=== PATIENT | female | born 1965 | race Caucasian/White ===

== ENCOUNTER 2019-02-14 13:57 | Inpatient (IN) ==
[2019-02-14 14:21] LABS: BASO# 0.03 X1000 (0.0-0.2); BASO% 0.3 % (0.0-0.8); EOS# 0.02 X1000 (0.0-0.7); EOS% 0.2 % (0.0-10.0); HEMATOCRIT 38.7 % (37.0-47.0); IMM GRAN# 0.02 X1000 (0.0-0.04); IMM GRAN% 0.2 % (0.0-0.5); LYMPH# 2.55 X1000 (1.2-3.4); LYMPH% 25.9 % (20.5-51.1); MCH 27.5 PG (27-31); MCV 88.8 FL (81-99); MONO# 0.66 X1000 (0.11-0.59); MONO% 6.7 % (1.7-9.3); MPV 11.6 FL (7.4-10.4); NEUT# 6.55 X1000 (1.4-6.5); NEUT% 66.7 % (42.2-75.2); PLT 313 X1000 (130-400); RBC 4.36 XMIL (4.2-5.4); RDW 13.8 % (11.5-14.5); WBC 9.83 X1000 (4.8-10.8)
[2019-02-14 14:40] LABS: ALB/GLOB RATIO 1.5; CALCIUM 9.1 mg/dL (8.8-10.2); POTASSIUM 3.8 mmol/L (3.5-5.1); TOTAL BILIRUBIN 0.32 mg/dL (0.20-1.00); TOTAL PROTEIN 6.7 g/dL (6.3-8.3)
--- NOTE | 2019-02-14 14:47 | EKG Report ---
Test Performed on : 02/14/2019 2:12:31 PM Test Reason : sob Blood Pressure : / mmHG Vent. Rate : 106 BPM Atrial Rate : 106 BPM P-R Int : 134 ms QRS Dur : 102 ms QT Int : 366 ms P-R-T Axes : 046 -36 007 degrees QTc Int : 486 ms Sinus tachycardia. Left axis deviation Voltage criteria for left ventricular hypertrophy Nonspecific T wave abnormality Abnormal ECG When compared with ECG of 09-JAN-2017 09:42, Vent. rate has increased BY 38 BPM Unconfirmed Result
--- NOTE | 2019-02-14 14:51 | PROVIDER DOCUMENTATION ---
HPI-General Adult - General Chief Complaint: Shortness of Breath Stated Complaint: HEART ISSUE-[facility]ARE [facility] REF Time Seen by Provider: 02/14/19 14:37 Source: patient Allergies/Adverse Reactions: Patient Allergies Allergy/AdvReac Type Severity Reaction Status Date / Time No Known Allergies Allergy Verified 02/14/19 14:03 Home Medications: Home Medication List Medication Instructions Recorded Confirmed Last Taken Type Atorvastatin Calcium [Lipitor] 20 mg PO QHS 12/05/16 02/14/19 02/13/19 History Levothyroxine [Synthroid] 75 microgm PO DAILY 12/05/16 02/14/19 02/14/19 History Gabapentin 1 tab PO TID 02/14/19 02/14/19 02/14/19 History Hydrocodone/APAP 10 mg/325 mg 1 tab PO DAILY 02/14/19 02/14/19 02/14/19 History [[place]-10] - History of Present Illness -Gen Adult Nature of Presenting Problems: 53yo female presents with CC of shortness of breath and cough. The patient reports that she went to urgent care for her symptoms and an echo was done showing enlarged heart and she was told to come to the ED. The patient denies hx of heart disease. The patient denies chest pain. The patient denies drug use. The patient denies any new swelling. The patient does report some decreased exercise tolerance. Location of Pain/Injury: reports: none Pain Radiation: reports: no radiation Quality of Pain: reports: none Severity: reports: mild Onset/Duration: reports: last week (1.5wks) Timing: reports: still present Context/Activities at Onset: reports: other (recent bronchitis) Modifying Factors: improves with: nothing Associated Symptoms: reports: cough, shortness of breath, other (decreased exercise tolerance, no increased swelling). denies: chest pain, fever/chills Review of Systems - Adult - REVIEW OF SYSTEMS - ADULT Constitutional: reports: no symptoms reported. denies: fever Eyes: reports: no symptoms reported. denies: eye pain Ears, Nose, Mouth & Throat: reports: no symptoms reported. denies: throat pain Cardiovascular: reports: no symptoms reported, other (decrease exercise tolerance). denies: chest pain Respiratory: reports: cough, shortness of breath. denies: hemoptysis Gastrointestinal: reports: no symptoms reported. denies: abdominal pain Genitourinary: reports: no symptoms reported. denies: flank pain Integumentary: reports: no symptoms reported Neurological: reports: no symptoms reported. denies: headache/migraines Psychiatric: reports: no symptoms reported. denies: alcohol/drug dependence Endocrine: reports: no symptoms reported Hematologic/Lymphatic: reports: no symptoms reported, other (no bleeding) Allergic/Immunologic: reports: no symptoms reported Past History - Adult - PAST MEDICAL HISTORY-ADULT Review of Records: reports: Old Records Reviewed Major Childhood Illnesses: reports: denies history Cardiovascular: reports: hyperlipidemia Respiratory: reports: denies history Gastrointestinal: reports: denies history Obstetrical/Gynecological: reports: denies history Genitourinary: reports: denies history Musculoskeletal: reports: chronic pain Neurological: reports: denies history Psychiatric: reports: anxiety, psychiatric problems Endocrine/Immune: reports: thyroid disorder Other Conditions: reports: denies history - PRIOR SURGERIES/PROCEDURES Surgical/Procedure History: reports: hysterectomy, - IMMUNIZATION STATUS Childhood Immunizations: See Nurse Assessment Flu Vaccine: See Nurse Assessment - FAMILY HISTORY Family History: reviewed, not pertinent - SOCIAL HISTORY Smoking: denies Substance Use: none/never Alcohol Use Frequency: never Physical Exam-General - PHYSICAL EXAM-ADULT Initial Vital Signs Reviewed: Yes - CONSTITUTIONAL General Appearance: appears well, alert, no apparent distress - EYES Eyes: negative: conjuctival exudate, photophobia, scleral icterus - HEAD, EARS, NOSE, MOUTH & THROAT HENMT: normocephalic/atraumatic, moist mucous membranes, pharynx normal. negative: angioedema, hearing deficit, pharyngeal erythema - NECK Neck: supple, normal inspection, other (no mass) - RESPIRATORY Respiratory: lungs clear, normal breath sounds, no respiratory distress. negative: crackles, rales, stridor, wheezing - CARDIOVASCULAR Cardiovascular: regular rate, rhythm. negative: no edema (trace LE edema bilaterally) - GASTROINTESTINAL (ABDOMEN) Abdominal Exam: non tender, soft. negative: guarding - MUSCULOSKELETAL Extremity: non-tender - SKIN Integumentary: normal color, warm/dry - NEUROLOGIC Neurologic: grossly normal - PSYCHIATRIC Psych/Mental Status: normal mood/affect, normal thought content, normal thought process Progress - PLAN OF CARE/RESULTS Progress/Plan/Lab Results: Vital Signs - 8 hr 02/14/19 13:59 Temperature 97.5 F L Pulse Rate 109 H Respiratory Rate 20 Blood Pressure 121/79 O2 Sat by Pulse Oximetry 96 Laboratory Results - last 24 hr 02/14/19 02/14/19 02/14/19 14:07 14:07 14:07 WBC 9.83 RBC 4.36 Hgb 12.0 Hct 38.7 MCV 88.8 MCH 27.5 MCHC 31.0 L RDW Std Deviation 13.8 Plt Count 313 MPV 11.6 H Immature Gran % (Auto) 0.2 Neut % (Auto) 66.7 Lymph % (Auto) 25.9 [place] % (Auto) 6.7 Eos % (Auto) 0.2 Baso % (Auto) 0.3 Immature Gran # (Auto) 0.02 Neut # (Auto) 6.55 H Lymph # (Auto) 2.55 [place] # (Auto) 0.66 H Eos # (Auto) 0.02 Baso # (Auto) 0.03 Sodium 143 Potassium 3.8 Chloride 105 Carbon Dioxide 22 L Anion Gap 16 BUN 12 Creatinine 1.0 H Estimated GFR/1.73 m2 58 BUN/Creatinine Ratio 12 Glucose 126 H Calculated Osmolality 286 Calcium 9.1 Total Bilirubin 0.32 AST 34 H ALT 54 H Alkaline Phosphatase 124 H Creatine Kinase 68 Troponin T High Sens 18 Total Protein 6.7 Albumin 4.0 Globulin 2.7 Albumin/Globulin Ratio 1.5 Orders Category Date Time Status Cardiac Monitoring DIRECTED Care 02/14/19 14:04 Active Oxygen Therapy- ED Nursing DIRECTED Care 02/14/19 14:04 Active Saline Loc NOW Care 02/14/19 14:04 Active CHEST-2 VIEWS [RAD] Stat Exams 02/14/19 14:04 Taken CBC WITH ELECTRONIC DIFF [HEME] Stat Lab 02/14/19 14:07 Completed CK PROFILE [SP CHEM] Stat Lab 02/14/19 14:07 Completed COMPREHENSIVE METABOLIC PANEL [CHEM] Stat Lab 02/14/19 14:07 Completed PRO B-NATRIURETIC PEPTIDE Stat Lab 02/14/19 14:07 Received PROTIME WITH INR [COAG] Stat Lab 02/14/19 14:07 Received PTT [COAG] Stat Lab 02/14/19 14:07 Received TROPONIN T HIGH SENSITIVITY Stat Lab 02/14/19 14:07 Completed CP/SOB/Palp >45 yrs of Age Stat Oth 02/14/19 14:04 Ordered EKG [EKG] Stat Ther 02/14/19 14:04 Ordered Result Diagrams: 02/14/19 14:07 02/14/19 14:07 - REASSESSMENT Reassessment #1 Status: other (Given elevated BNP to 4000 as well as new EF on urgent care ECHO of 20%, will plan to admit for new onset heart failure. Discussed with the hospitalist team who has accepted the patient.) - EKG 1 Time of EKG reading by physician:: 14:00 EKG Read and Signed by:: Jacky Glaser (Entered/Co-read by Dr. Briscoe) Rate: 106 Rhythm: sinus [place]: normal QRS: normal MT Interval: normal ST Wave: non-specific ST changes Prior EKG Comparison: changes noted Comments: new non-specific changes. no injury current. possible delta waves note d Departure - Departure Date of Disposition Decision: 02/14/19 Time of Disposition Decision: 15:17 DIAGNOSIS: Heart failure Qualifiers: Heart failure type: other Qualified Code(s): I50.89 - Other heart failure; I50.8 - Other heart failure Disposition: ADMITTED INPATIENT 09 Certified Medical Emergency: Emergent Condition: Fair Referrals and Follow-Ups: None,PCP [Primary Care Provider] - - Critical Care Note This patient required my direct & personal management of CC.: No Attestation - Physician/ HAILEY Attestation Patient care was provided by Advanced Practice Provider:: No The physician spent face to face time with patient:: Yes Advanced Practice Provider documentation review:: Supervising physician onsite and consulted in the evaluation and care of this patient. The physician did have a face to face encounter with the patient.
[2019-02-14 14:54] LABS: INR 1.17; PROTIME 15.1 Seconds (11.0-16.0)
--- NOTE | 2019-02-14 15:02 | Diag Imaging Result Doc PS360 ---
EXAM: CHEST-2 VIEWS HISTORY: sob TECHNIQUE: Two views COMPARISON: 01/09/2017 FINDINGS: The lungs are well expanded. The heart is mildly prominent. The vessels are not distended. There are no infiltrates. No pleural effusions. IMPRESSION: Mild cardiac megaly Electronically signed by Romeo Ovalle 02/14/2019 3:00 PM
[2019-02-14 16:38] LABS: UR AMPHETAMINES QUAL NONE DETECTED (NONE DETECT); UR BARBITUATES QUAL NONE DETECTED (NONE DETECT); UR BENZODIAZEPIN QUAL NONE DETECTED (NONE DETECT); UR CANNABINOIDS QUAL NONE DETECTED (NONE DETECT); UR COCAINE QUAL NONE DETECTED (NONE DETECT); UR METHADONE QUAL NONE DETECTED (NONE DETECT); UR OPIATES QUAL PRESUMPTIVE POSITIVE (NONE DETECT); UR OXYCODONE QUAL NONE DETECTED (NONE DETECT); UR PCP QUAL NONE DETECTED (NONE DETECT)
[2019-02-14 16:58] LABS: MAGNESIUM 2.2 mg/dL (1.5-2.7)
--- NOTE | 2019-02-14 17:00 | Diag Imaging Result Doc PS360 ---
EXAM: CT THORAX W/O CONTRAST HISTORY: chronic cough TECHNIQUE: CT chest without intravenous contrast COMPARISON: None. FINDINGS: The heart is markedly enlarged. No aortic aneurysm. No left pleural effusion. Tiny right pleural effusion. Mildly prominent mediastinal nodes. Mild vascular distention. No consolidation. No bronchiectasis. IMPRESSION: Cardiomegaly with mild pulmonary edema and a tiny right pleural effusion This exam was performed using automated exposure control, adjustment of mA or kV according to patient size, and/or use of iterative reconstruction technique. Electronically signed by Romeo Ovalle 02/14/2019 4:58 PM
--- NOTE | 2019-02-14 19:29 | HISTORY AND PHYSICAL ---
PRIMARY CARE PROVIDER: CHIEF COMPLAINT: Referred from Urgent Care. HISTORY OF PRESENT ILLNESS: Ms. Solitario is a 53-year-old female who reports she was diagnosed with bronchitis 1 month p.o. and again yesterday. She received antibiotics 1 month ago, antibiotic shot and steroids and cough syrup yesterday. She reported that they saw an enlarged heart on her chest x-ray. She went in and had an echocardiogram done today that showed an EF of 20% and was referred to the ED. They also reported that she had new onset atrial fibrillation on an EKG. All we have written down is a note with some labs from the urgent care. Workup here does reveal cardiomegaly but no pulmonary edema on chest x-ray. EKG shows a sinus tachycardia with left axis deviation. Her proBNP is 4274, troponin of 18, a white count of 9. O2 saturations are 96% on room air. She was not hypertensive. Blood pressure was 121/79. She reports no fever, no chills. No nausea, vomiting, diarrhea. No cardiac type chest pain. No shortness of breath except over the last few days with her bronchitis. She does have a productive cough with greenish sputum, nothing that is pink or frothy. No swelling in her lower extremities. She does get swelling in her knees. She has chronic bilateral knee and back pain from standing on a concrete floor at work. Hospitalist Service was called to admit her for new diagnosis of congestive heart failure and new diagnosis of atrial fibrillation. We will set her up for an echocardiogram to get on record and recheck her proBNP in the a.m. and watch her on telemetry overnight to rule out any atrial fibrillation. PAST MEDICAL HISTORY: Hyperlipidemia, hypothyroidism, chronic pain on gabapentin and [place] followed by pain doctor, Chavez Rao M.D. PAST SURGICAL HISTORY: Hysterectomy and . FAMILY HISTORY: Mother with diabetes. Father with hypertension. SOCIAL HISTORY: She is . She has 7 grandchildren. She works at [employer] in the [employer] department. She is around secondhand smoke, but she is not a smoker herself. No alcohol, marijuana, or illicit drug use. REVIEW OF SYSTEMS: Twelve-point review of systems completely negative except for those mentioned in HPI. PHYSICAL EXAMINATION: VITAL SIGNS: Temperature is 97.5 degrees, heart rate 109, respirations 20, blood pressure 121/79, O2 is 96% on room air. GENERAL: Ms. Solitario is a pleasant 53-year-old female who is sitting up in the bed in no acute distress. HEENT: Atraumatic, normocephalic. PERRL. NECK: Supple. Trachea midline. CARDIOVASCULAR: S1, S2 appreciated. No murmurs, gallops, rubs noted. RESPIRATORY: Lung sounds clear bilaterally. GASTROINTESTINAL: Soft, nontender, nondistended. Positive bowel sounds 4 quadrants. EXTREMITIES: Lower extremities are negative for edema. NEUROLOGIC: No focal deficits noted. DIAGNOSTIC DATA: Chest x-ray: Mild cardiomegaly. EKG: Sinus tachycardia with left axis deviation and nonspecific T-wave abnormality at 106 beats per minute. LABORATORY DATA: White count 9, hemoglobin and hematocrit 12 and 38, platelet count is 313,000. Sodium 143, potassium 3.8, BUN 12, creatinine 1, blood glucose is 126. AST 34, ALT 54, alkaline phosphatase 124. Troponin 18. ProBNP was 4274. TSH was 5.49. ASSESSMENT AND PLAN: 1. Questionable new onset congestive heart failure. Her proBNP is elevated. We have reported that she has an ejection fraction of 20%. We will recheck an echocardiogram. They did not send any disk, just a note written on lab work. She does not appear to be fluid volume overloaded. We will recheck her proBNP in the a.m. 2. Question of atrial fibrillation. The patient has no knowledge of history of atrial fibrillation. This is a report from the urgent care. She is not currently in atrial fibrillation; however, we will continue to monitor on telemetry. 3. Recent diagnosis of bronchitis for which she received an antibiotic shot and steroid shot for. She is not complaining of any shortness of breath. 4. Hyperlipidemia. We will continue her Lipitor. Check a lipid profile in the a.m. 5. Hypothyroidism. Continue Synthroid. 6. Chronic pain with her back and knees followed by the pain clinic. Continue her home [place] and gabapentin. 7. Mild transaminitis. Further recommendations to follow physician evaluation, laboratory and diagnostic data. Dictated by ANKUR Sigala for Ander Pride MD cc: Ander Pride MD [facility]
--- NOTE | 2019-02-14 19:49 | HISTORY AND PHYSICAL ---
ADDENDUM TO HISTORY AND PHYSICAL: Ms Solitario is a 53-year-old female who said she has some thyroid issues as well as high cholesterol, went to primary care about a month ago because of respiratory tract infection and was treated with antibiotics. She thinks she got better, but then about a week ago she started coming down with this dry hacking cough. No expectoration, associated with some shortness of breath, but no fever, no chills. She said this has been going on for long and has been progressively getting worse so she came in. She went to an urgent care and apparently she was evaluated and was told that she has a congestive heart failure with ejection fraction of about 20 to 25, so she was sent in here. Upon presentation, she was evaluated. PHYSICAL EXAMINATION: Her vitals shows a blood pressure of 121/79, pulse of 109, respirations 20, temperature 97.5 degrees. Patient is saturating 96% on room air. GENERAL: Ms. Solitario is a 53-year-old female. She looks morbidly obese with a BMI of 35.7. She is not in any distress. HEENT: Mucosa is pink and moist. Anicteric. Acyanotic. NECK: Supple. I did not see any JUGULAR VENOUS DISTENTION. CHEST: Good air entry bilaterally. A few dry crackles in both lung fernandez. CARDIOVASCULAR: Regular rate and rhythm. ABDOMEN: Soft. EXTREMITIES: No pedal edema. RAIL SPECIALIST: RAIL SPECIALIST patient is awake, alert, and oriented. LABORATORY DATA: 1. So far patient's laboratory data: CBC is unremarkable chemistry shows a creatinine is 1.0. AST and ALT are minimally elevated. Pro B 4,274. 2. An EKG shows normal sinus rhythm with left axis deviation. No ST-segment or T-waves abnormality. There is, however, poor R-wave progression. 3. A chest x-ray which was done shows lungs well-expanded, mildly prominent heart. No infiltrates. ASSESSMENT: 1. Persistent cough associated with shortness of breath and elevated pro B. There is concern that the patient could have congestive heart failure. Am told that there was an echocardiogram done in an outside facility which showed ejection fraction of about 25%. One has been repeated over here. We are going to follow up on that. The patient will also get a CT scan of the lungs since the chest x-ray for most part was unremarkable to give us a better visualization of the lung parenchyma and to r/o other lung disease process 2. Dyslipidemia. We will continue with the atorvastatin. 3. Hypothyroidism the patient will be continued on her levothyroxine at the same dose. 4. Morbid obesity. Weight management has been recommended. 5. We will give further recommendations as we get further results from the pending investigations. Please refer to the details of H and P which has been dictated by the MATERIALS ASSOCIATE in the chart. I reviewed it and I have discussed the plan with her. cc: Ander Pride MD MTDD
[2019-02-14] MEDS ORDERED: TESSALON PO PRN (19:53)
[2019-02-14] MEDS: LIPITOR PO SCH (20:17)
[2019-02-14] MEDS: NEURONTIN PO SCH (20:17)
[2019-02-14] MEDS ORDERED: ZITHROMAX 500 MG/NS 500 MG/250 ML IVPB IV ONE (20:29)
[2019-02-14] MEDS: ZITHROMAX 500 MG/NS 500 MG/250 ML IVPB IV SCH (22:47)
[2019-02-15] MEDS: SYNTHROID PO SCH (06:04)
[2019-02-15 06:06] LABS: HEMOGLOBIN A1C 5.6 % (4.8-6.0)
--- NOTE | 2019-02-15 07:50 | Diag Imaging Result Doc PS360 ---
EXAM: CHEST-PORTABLE INDICATION: chf TECHNIQUE: One view COMPARISON: 02/14/2019 FINDINGS: The lungs remain grossly clear. No new consolidation is identified. There is stable cardiomegaly. IMPRESSION: Stable cardiomegaly. No definite acute pathology by plain radiograph. Electronically signed by Tirso Whittington 02/15/2019 7:48 AM
[2019-02-15] MEDS: NORCO-10 PO SCH (09:00)
[2019-02-15] MEDS: NEURONTIN PO SCH ×3 (09:00→20:58)
--- NOTE | 2019-02-15 12:01 | ECHO REPORT ---
ORDER DATE: 02/14/2019 INTERPRETING PHYSICIAN: Audi Calderon MD. ECHOCARDIOGRAPHIC MEASUREMENTS: 1. Interventricular septum 0.7. 2. Left ventricular posterior wall 0.6. 3. Diastolic diameter 6.5. 4. Left atrium 4.8. 5. Aorta 2.9 cm. FINDINGS: 1. Mitral valve was normal. 2. Aortic valve leaflets were trileaflet. 3. Pulmonic valve was normal. There is mild pulmonary regurgitation. Dilated left ventricle with severely reduced systolic function. Estimated ejection fraction of 15%. 4. There is biatrial enlargement. 5. There is moderate to severe tricuspid regurgitation. Peak velocity across the tricuspid valve was 3.2 m/sec. 6. Pulmonary artery systolic pressure of 47 mmHg. 7. There is moderate to severe eccentric mitral regurgitation. 8. There is grade 3 diastolic dysfunction. 9. Peak velocity across the aortic valve less than 2 m/sec. There is no aortic stenosis or regurgitation. 10. Inferior vena cava is dilated at 2.6 cm suggestive of pulmonary arterial hypertension. 11. There is no pericardial effusion. cc: Audi Calderon MD
--- NOTE | 2019-02-15 12:33 | CARDIOLOGY CONSULTATION ---
DATE: 02/15/2019 SUBJECTIVE: Patient is a 53-year-old lady who works at [employer]. Has history of hypercholesterolemia and history of thyroid issues. Had been doing well for the last 2 to 3 weeks. She has noticed episodes of hacking cough not associated with any fevers or chills. She was given antibiotics, went back to the urgent care and was told that she has heart failure with reduced systolic function. She came to the hospital and was subsequently admitted. As far as symptoms are concerned, there is no history of palpitations. There is no history of dizziness or syncope. She does not complain of having had any chest pains. The symptoms which she has been having are at best 2 to 3 weeks. Prior to that, she was active. She was able to do her daily scheduled activities at the [employer] without any problems of shortness of breath. REVIEW OF SYSTEMS: General: A 14-point review of system was done. GI System: There is no history of nausea, vomiting, diarrhea. There is no history of hematemesis or melena. Central nervous system: No focal weakness to suggest a CVA, TIA. System: There is no dysuria or hematuria. PAST MEDICAL HISTORY: 1. Hyperlipidemia. 2. Hypothyroidism. 3. Pain, chronic. MEDICATIONS: She is on levothyroxine 25 mcg a day at home, Atorvastatin 20, gabapentin 600 mg 1 p.o. t.i.d. and hydrocodone daily. SOCIAL HISTORY: She does not smoke. Does not drink. PHYSICAL EXAMINATION: Vital Signs: Blood pressure was 121/79, pulse rate 100. Heart: Jugular venous pressure was elevated. First and second heart sounds were heard. There was S3 gallop. Respiratory System: A few scattered bilateral expiratory crackles. Abdomen: Abdomen was soft, nontender. There was no guarding or rigidity. Bowel sounds were heard. Central nervous system: Alert and oriented. Was moving all 4 extremities. Extremities: Examination of extremities revealed no pedal edema. LABORATORY EXAMINATION: Revealed WBC 9.83, hemoglobin 12.0, hematocrit 38.7, platelet count of 313. Sodium 143, potassium 3.8, BUN 12, creatinine 1.0. ProBNP elevated at 4274. Troponin-T high sensitivity were normal. TSH 5.49 magnesium 2.2. LFTs abnormal at 34 AST, ALT was 54, alkaline phosphatase was 124. Urine test was positive for opiates. IMAGING STUDIES: Chest x-ray on admission revealed cardiomegaly. ASSESSMENT AND PLAN: Ms. Tsering Solitario is a 53-year-old lady, who has history of hyperlipidemias, hypothyroidism, is admitted with increasing shortness of breath. Was noted to have cardiomegaly and left ventricular dysfunction. Her symptoms have basically been for about 2 to 3 weeks; prior to that, she states she had been healthy without any significant major problems. There is no history of recent fevers or chills. Her electrocardiogram revealed sinus tachycardia with left axis deviation, borderline left ventricular hypertrophy with poor R-wave progression. She had an echocardiogram; please see detailed echocardiogram report. She had severe dilated left ventricle with reduced ejection fraction of 15% associated with diastolic dysfunction. In addition, she has moderate to severe eccentric mitral regurgitation and moderate tricuspid regurgitation. These are new symptoms. 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 She does not have any chest pain. She has not had any significant previous cardiac history. RECOMMENDATIONS: 1. She has been treated for bronchitis, is on antibiotics, feels better, but given her left ventricular dysfunction, I will start her on Entresto 1 tablet twice a day in addition to Coreg 3.125 mg twice daily, Aldactone 25 mg a day and Lasix 20 mg daily. 2. Symptomatically she has improved, although once she is euvolemic we will plan for a Cardiolite stress test to make sure there is no significant ischemia to account for her symptomatology. However, if there is no ischemia and there is only fixed defect which is likely given the dilated cardiomyopathy that could be related to a cardiomyopathy picture, we will update you as the tests are performed. 3. There is no family history of sudden cardiac . There is no family history of heart failure. Her TSH was normal. We will check a CRP and serum ferritin level as part of the workup for her dilated cardiomyopathy. This could be secondary to myocarditis viral etiology. We will plan for further testing as an outpatient with a cardiac MRI. Thank you for the consult. We will follow hospital course. cc: Audi Calderon MD
[2019-02-15] MEDS: ALDACTONE PO SCH (13:22)
[2019-02-15] MEDS: COREG PO SCH ×2 (13:22→20:58)
[2019-02-15] MEDS: LASIX PO SCH (13:23)
--- NOTE | 2019-02-15 14:03 | PROGRESS NOTE ---
DATE: 02/15/2019 SUBJECTIVE: This morning, Ms. Solitario refers to be doing well. Denies any new complaints. OBJECTIVE: Vital signs: Blood pressure is 114/79, pulse of 100, respiration is 20, temperature 98.1 degrees. General: Ms. Solitario is a 53-year-old female. She is in bed, no distress. HEENT: Mucosa is pink and moist. Anicteric. Acyanotic. Neck: Supple. Chest: Good air entry bilaterally. There were no crepitations, no rhonchi. Cardiovascular: Regular rate and rhythm. No murmurs, no rubs, no gallops. Gastrointestinal: Abdomen is soft, nontender. Bowel sounds present. Extremities: No pedal edema. Central nervous system: Patient is awake, alert, oriented. There is no focal deficit. LABORATORY DATA: The pro B is down to 3309. IMAGING: A CT scan of the chest which was done yesterday did mention cardiomegaly with mild pulmonary edema and a tiny right pleural effusion. A repeat chest x-ray this morning shows grossly clear lungs, no consolidation, stable cardiomegaly. ASSESSMENT: 1. Dyspnea on presentation associated with elevated pro B, cardiomegaly on chest x-ray and some pulmonary edema, all concerning for congestive heart failure. The patient has had echocardiogram done and we are pending the report. Of note, Ms. Solitario was seen in an Urgent Care and I understand a bedside echo revealed an ejection fraction of 25%. 2. Bronchitis. Patient is on antimicrobial therapy. She refers to be feeling a lot better today. 3. Dyslipidemia. We will continue with atorvastatin. 4. Hypothyroidism. Patient is on levothyroxine. 5. Morbid obesity. PLAN: I think Ms. Solitario is doing well. We are pending the final report on her echo done over here yesterday and then make further recommendations. cc: Ander Pride MD
[2019-02-15] MEDS: LIPITOR PO SCH (20:58)
[2019-02-15] MEDS: ENTRESTO 24 MG-26 MG TABLET PO SCH (20:58)
[2019-02-15] MEDS: ZITHROMAX 500 MG/NS 500 MG/250 ML IVPB IV SCH (20:59)
[2019-02-16 00:04] LABS: CALCIUM 8.4 mg/dL (8.8-10.2); MAGNESIUM 2.2 mg/dL (1.5-2.7)
[2019-02-16 06:05] LABS: CALCIUM 8.5 mg/dL (8.8-10.2)
[2019-02-16 06:28] LABS: CHOLESTEROL 120 mg/dL (0-200); HDL 44 mg/dL (45-65); LDL 60 mg/dL; TRIGLYCERIDES 80 mg/dL (35-135); VLDL 16 mg/dL
[2019-02-16] MEDS: SYNTHROID PO SCH (06:55)
[2019-02-16] MEDS: NEURONTIN PO SCH ×3 (08:11→20:17)
[2019-02-16] MEDS: ENTRESTO 24 MG-26 MG TABLET PO SCH ×2 (08:11→20:15)
[2019-02-16] MEDS: NORCO-10 PO SCH (08:11)
[2019-02-16] MEDS: LASIX PO SCH (08:12)
[2019-02-16] MEDS: ALDACTONE PO SCH (08:12)
[2019-02-16] MEDS: COREG PO SCH ×2 (08:12→20:14)
[2019-02-16] MEDS ORDERED: VENOFER 200 MG in NS 100 ML IV ONE (11:13)
--- NOTE | 2019-02-16 11:51 | PROGRESS NOTE ---
DATE: 02/16/2019 SUBJECTIVE: Today, Ms. Solitario refers to be doing well. Denies any chest pain, and according to her, coughing and shortness of breath has significantly improved. OBJECTIVE: Vital Signs: Blood pressure 94/69, with a MAP of 75, pulse of 83, respirations 21, temperature is 97.5 degrees, the patient is saturating 99% on room air. General: Ms. Solitario is a 53-year-old, female. She is in bed. No distress. HEENT: Mucosa is pink and moist. Anicteric. Acyanotic. Neck: Supple. The patient has poor dentition. Chest: Good air entry bilaterally. No crepitations. No rhonchi. Cardiovascular: Regular rate and rhythm. No murmurs, no rubs, no gallops. GI: Abdomen is soft, nontender. Bowel sounds present. There is no hepatosplenomegaly. Extremities: No pedal edema. Distal pulses are present. VIDEO CAMERA OPERATOR: The patient is awake, alert, oriented. There is no focal deficit. The patient I's and O's show urine output 1500. The patient is negative balance of 418. IMAGING: No recent imaging studies. LABORATORY DATA: Chemistry is unremarkable. ProBNP 3309 from yesterday. Lipid panel is unremarkable. Ferritin is 57, which is remarkably low. MEDICATIONS: Current medications have all been reviewed. ASSESSMENT: 1. Dyspnea on presentation, associated with elevated proBNP. 2. Cardiomegaly and pulmonary edema on chest x-ray, concerning for congestive heart failure. Echocardiogram shows ejection fraction of 15. 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 The patient is being seen by Cardiology. 3. Bronchitis. The patient is on azithromycin. 4. Dyslipidemia. Will continue with atorvastatin. 5. Hypothyroidism. Will continue with levothyroxine. 6. Iron deficiency. The patient will be given a dose of Venofer. In general, I think Ms. Solitario is clinically stable. No chest pain. No shortness of breath. She feels a lot better. I have discussed the case with the laborer ammunition assembly on board (Dr. Calderon), and the plan is to have a stress test tomorrow. 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 If Ms. Solitario's stress test is unremarkable for any ischemic changes, the recommendation is to get her home on the current medications, and have her follow up with Dr. Calderon. cc: Ander Pride MD
[2019-02-16] MEDS: LIPITOR PO SCH (20:15)
[2019-02-17] MEDS: SYNTHROID PO SCH (06:05)
[2019-02-17] MEDS ORDERED: LEXISCAN ONE (09:01)
[2019-02-17] MEDS: ENTRESTO 24 MG-26 MG TABLET PO SCH ×2 (12:08→20:03)
[2019-02-17] MEDS: COREG PO SCH ×2 (12:08→20:03)
[2019-02-17] MEDS: ZITHROMAX PO SCH (12:08)
[2019-02-17] MEDS: ALDACTONE PO SCH (12:08)
[2019-02-17] MEDS: NEURONTIN PO SCH ×3 (12:09→20:03)
[2019-02-17] MEDS: NORCO-10 PO SCH (12:10)
--- NOTE | 2019-02-17 13:51 | Diag Imaging Result Document ---
PROCEDURE NAME: MYOCARDIAL PERF SCAN, STR/REST - 02/17/2019 SUMMARY: The patient was administered 14.4 mCi of technetium 99-m sestamibi after which resting cardiac images were obtained. The patient was subsequently administered Lexiscan 0.4 mg intravenously, after which the heart rate went from 86 beats per minute to 101 beats per minute, and the blood pressure went from 104/70 to 107/70. With Lexiscan, the patient denied chest discomfort. Following the administration of Lexiscan, the patient was administered 39.5 mCi of technetium 99-m sestamibi after which gated stress cardiac images were obtained. Baseline ECG demonstrated sinus rhythm, delayed precordial R-wave progression, and nonspecific T- wave abnormality. With Lexiscan, there were no diagnostic ST-segment changes. SPECT images were reconstructed in the short, horizontal, and vertical axis. Review of systems SPECT images suggests moderate left ventricular enlargement. There is a small to medium-sized area of severely diminished activity in the very apex left ventricle on stress images which appears similar on resting images. No significant reversibility is evident. Gated images demonstrate a calculated left ejection fraction of 32% in the setting of global hypokinesis. CONCLUSIONS: 1. Adequate response to Lexiscan. 2. Clinically negative for chest pain. 3. Electrocardiographically, there were no diagnostic ST-segment changes on ECG following administration of Lexiscan. 4. Lexiscan sestamibi images demonstrate left ventricular enlargement, global hypokinesis, and a calculated left ventricular ejection fraction of 32%. There is a small to medium sized severe fixed defect in the very apex possibly related to previous apical scar/infarct. There is no convincing scintigraphic evidence of inducible myocardial ischemia. cc: MD Audi Corbin MD
--- NOTE | 2019-02-17 14:07 | PROGRESS NOTE ---
DATE: 02/17/2019 HISTORY: Ms. Solitario presented on 02/14/2019, referred by Urgent Care. A 53-year-old white female, no primary care for provider. She was diagnosed with bronchitis one month ago. She received antibiotics about one month ago. She had an antibiotic shot and steroids and some cough syrup. Reported that she had enlarged heart on chest x-ray. Went and had an echocardiogram done, showed an ejection fraction of 20%, and was referred to the emergency department. Reported she had new onset of atrial fibrillation on EKG. They had written down on a note that she did have some labs from urgent care. EKG showed sinus tachycardia with left axis deviation. ProBNP was 4274. Troponin was 18. White count is 9. O2 saturations are 90% on room air. She was not hypertensive. Blood pressure 121/79. She has chronic bilateral knee and back pain. So, the patient was admitted with questionable new onset of congestive heart failure. ProBNP is elevated. Reported that she had ejection fraction of 20% and the plan was to recheck the left ventricle. Questionable atrial fibrillation. OBJECTIVE: General: On exam today she is sitting up. No chest pain. Feels good. Vital Signs: Remains afebrile, temperature 97.4 degrees, pulse 94, respirations 22, blood pressure 89/70. Urine output is 1200 mL. HEENT: Pupils are equal and round. Lungs: Lungs are clear in all lung fernandez. Cardiovascular: Regular rhythm and rate without murmur or S3. Abdomen: Abdomen is soft. Skin: Warm and dry. ASSESSMENT AND PLAN: 1. Dyspnea on presentation associated with elevated proBNP. 2. Cardiomegaly. Pulmonary edema on chest x-ray concerning for congestive heart failure. Echocardiogram shows ejection fraction of 15% and so she may have some type of viral cardiomyopathy or idiopathic cardiomyopathy. 3. Bronchitis, on azithromycin. That is improving. 4. Dyslipidemia, on atorvastatin. 5. Hypothyroidism. She is on levothyroxine. Thyroid appears euthyroid. 6. Iron deficiency. She was given one dose of Venofer. ORDERS: Lipitor 20 mg at bedtime, azithromycin 250 mg daily, Coreg 3.125 mg b.i.d., Neurontin 600 mg p.o. t.i.d., Synthroid 75 mcg a day, sacubitril/valsartan one b.i.d., spironolactone 25 mg a day, and was given iron sucrose one dose 200 mg IV yesterday. REVIEW OF LAB: I do not see any new lab this morning. She is getting a [employer] GXT today. cc: Rakesh Watson MD
[2019-02-17] MEDS: LIPITOR PO SCH (20:03)
[2019-02-18 05:32] LABS: BASO# 0.04 X1000 (0.0-0.2); BASO% 0.4 % (0.0-0.8); EOS# 0.32 X1000 (0.0-0.7); EOS% 3.3 % (0.0-10.0); HEMATOCRIT 42.2 % (37.0-47.0); HEMOGLOBIN 13.4 g/dL (12.0-16.0); IMM GRAN# 0.04 X1000 (0.0-0.04); IMM GRAN% 0.4 % (0.0-0.5); LYMPH# 2.03 X1000 (1.2-3.4); LYMPH% 20.8 % (20.5-51.1); MCH 27.9 PG (27-31); MCHC 31.8 g/dL (33-37); MCV 87.9 FL (81-99); MONO# 0.73 X1000 (0.11-0.59); MONO% 7.5 % (1.7-9.3); MPV 11.7 FL (7.4-10.4); NEUT# 6.59 X1000 (1.4-6.5); NEUT% 67.6 % (42.2-75.2); PLT 355 X1000 (130-400); RDW 14.1 % (11.5-14.5); WBC 9.75 X1000 (4.8-10.8)
[2019-02-18 05:46] LABS: CALCIUM 9.2 mg/dL (8.8-10.2); POTASSIUM 4.3 mmol/L (3.5-5.1)
[2019-02-18] MEDS: SYNTHROID PO SCH (06:10)
[2019-02-18 08:49] LABS: INR 1.11; PROTIME 14.4 Seconds (11.0-16.0); PTT 28.8 Seconds (22.3-41.8)
[2019-02-18] MEDS ORDERED: HEPARIN 1000 UNITS/NS 2,000 UNIT/1,000 ML IV.SOLN ONE (08:59)
[2019-02-18] MEDS ORDERED: ISOPTIN ONE (10:09)
[2019-02-18] MEDS ORDERED: VERSED ONE (10:30)
[2019-02-18] MEDS ORDERED: DILAUDID ONE (10:30)
[2019-02-18] MEDS ORDERED: NS 1,000 ML ONE (10:30)
[2019-02-18] MEDS ORDERED: CLAVE TWINSITE 32 IN 11959 ONE (10:30)
[2019-02-18] MEDS ORDERED: ANESTHESIA PB SET 88 IN 5742 ONE (10:30)
--- NOTE | 2019-02-18 11:35 | CARDIAC CATH REPORT ---
PROCEDURE NAME: - INDICATION: Systolic heart failure. PROCEDURES PERFORMED: 1. Left heart catheterization. 2. Selective coronary angiography. 3. Left ventriculogram. PROCEDURE DETAIL: Ms. Solitario was brought to the catheterization laboratory in a fasting state. Informed consent was obtained. Prepped in usual fashion. She was anesthetized over the right radial artery after Rakesh's test proved adequate. A 5-Cymro sheath was placed via true Seldinger technique. A radial cocktail was administered. Catheters were introduced. Hemodynamic measurements made in the ascending thoracic aorta. Coronary angiography was performed in multiple views using JL3.5, JR4 diagnostic catheters. Left heart catheterization and left ventriculogram was performed using the JR4. At the closure of the procedure, all sheaths and catheters were removed. TR band was left inflated at 8 mL of air. Good capillary refill, 5 mL of blood loss, 50 mL of IV contrast. No apparent complications. FINDINGS: 1. The left main originates from the left coronary cusp. It appears to be angiographically normal. 2. The left anterior descending and circumflex vessels appear to originate from the left main. They appear to be angiographically normal and large throughout their course. 3. The right coronary originates from the right coronary cusp. It is a dominant vessel, large throughout its course and normal. 4. Aortic blood pressure 106/69 with a mean of 85. Left ventricular pressure is 108/7 with an LVEDP of 27. 5. The ejection fraction was estimated in the 15 to 20 percent range with global hypokinesis and dilatation of the left ventricular cavity. ASSESSMENT: Ms. Solitario is a 53-year-old female with new onset systolic heart failure. PLAN: She has no flow-limiting lesions. This appears to be a nonischemic process. She has a markedly reduced ejection fraction with a markedly elevated LVEDP. I have discussed the findings with her primary sandblaster stone, Dr. Calderon, who will manage further medication titrations. cc: Edi Childers MD
[2019-02-18] MEDS: ALDACTONE PO SCH (11:37)
[2019-02-18] MEDS: ZITHROMAX PO SCH (11:38)
[2019-02-18] MEDS: NEURONTIN PO SCH ×2 (11:38→16:15)
[2019-02-18] MEDS: ENTRESTO 24 MG-26 MG TABLET PO SCH (11:38)
[2019-02-18] MEDS: COREG PO SCH (11:38)
[2019-02-18] MEDS: NORCO-10 PO SCH (11:39)
[2019-02-18 12:02] VITALS: BP 114/69
--- NOTE | 2019-02-18 14:01 | DISCHARGE SUMMARY ---
ADMISSION DATE: 02/14/2019 DISCHARGE DATE: 02/18/2019 HOSPITAL COURSE: She has no primary care physician. Referred from urgent care. A 53-year-old, white female. Reports she was diagnosed with bronchitis about a month ago and then again, the day before admission, received some antibiotics, 1 month ago, antibiotic shot, steroids, cough syrup. Started yesterday, the day before admission. She reported that they saw an enlarged heart on chest x-ray. She went and had an echocardiogram done. Ejection fraction was reported to be 20%. Referred to the emergency room. Before this, she had new onset atrial fibrillation. An EKG, written down on a note and some tabs, workup revealed cardiomegaly but no pulmonary edema on chest x-ray. EKG showed sinus tachycardia with left axis deviation. Her proBNP was 4270. Troponin was 18. White blood cell count 9. O2 saturations are 96% on room air. She was not hypertensive. Blood pressure was 121/79. She was admitted with questionable new onset congestive heart failure, left ventricular dysfunction, and question of atrial fibrillation. She has had no knowledge of having any of these before. She had a recent diagnosis of bronchitis. She has a history of hyperlipidemia and hypothyroidism. Chest x-ray on 02/14/2019, cardiomegaly with mild pulmonary edema and tiny right pleural effusion. Repeat chest x-ray on the , stable cardiomegaly. No definite acute pathology. Cardiology was asked to see. Dr. Pulido saw and did a myocardial perfusion scan. Adequate response to Lexiscan. Clinically negative for chest pain. EKG, there was no diagnosis of ST-segment changes on EKG following administration of Lexiscan. Lexiscan sestamibi images demonstrated left ventricular enlargement, global hypokinesis, and a calculated left ventricular ejection fraction of 32%. There was a small to medium-sized, severe, fixed defect in the very apex, possibly related to previous apical scar and infarct. No convincing evidence of inducible myocardial ischemia. She then went to heart catheterization today. She has new onset of systolic heart failure. She has a markedly reduced ejection fraction, markedly elevated LVEDP but the coronaries were unremarkable and so he has agreed to let her go home. DISCHARGE ORDERS: She will be on Lipitor 20 mg a day, Coreg 3.125 mg p.o. daily, Neurontin 600 mg t.i.d., Synthroid 75 mcg daily, Entresto one b.i.d., and spironolactone 25 mg a day. She will follow up with her new primary care. She asked that we can help her fill out her [place] papers for her work and discharge her home today. cc: Rakesh Watson MD
== END 2019-02-18 16:25 | disposition home or self-care (01) | DRG 287 ==
LOC: ED 13:57 → EDIPHOLD 13:57 → SUATTDRO 16:20 → OBSVTOIN 16:20 → 1N 17:48
PROVIDERS: ATTEND Emergency Medicine